=== PATIENT | female | born 1990 | race Asian ===

== ENCOUNTER 2018-08-16 15:16 | Emergency (ER) | payer OTHER ==
[~2018-08-16] VITALS: Ht 162.6 cm; Wt 51.7 kg
[2018-08-16 15:27] VITALS: Ht 162.6 cm; Wt 51.7 kg
[2018-08-16 16:59] LABS: BASOPHIL % 0.4 % (0-2); PLATELET COUNT 154 x10^3mcL (130-400); RED CELL DISTRIBUTION WIDTH 13.3 % (11.5-14.5)
[2018-08-16 20:30] VITALS: BP 92/63
== END 2018-08-16 20:30 | disposition home or self-care (01) ==
LOC: ED 15:16
PROVIDERS: Emergency Medicine
DX: O20.0 Threatened abortion (principal)
CPT/HCPCS: 36415; Q0092